=== PATIENT | female | born 1935 | race Two or more races ===

== ENCOUNTER 2017-04-02 22:10 | Inpatient (IN) | payer MEDICARE, MEDICAID ==
[~2017-04-02] VITALS: Ht 154.9 cm; Wt 48.5 kg
--- NOTE | 2017-04-02 22:12 | NUR ---
TO BED 7 BIB PARAMEDICS C/O WORSENING SOB, RHONCHI HEARD BILATERALLY ON AUSCULTATION. PT STARTED ON CPAP BY EMS RESIDENTIAL DOOR INSTALLER. ER MD AT BEDSIDE TO EVAL PT WITH ORDERS RECEIVED. RT AT BEDSIDE. SL 20G TO R HAND RESIDENTIAL DOOR INSTALLER. PLACE PT ON CARDAIC MONITORING, CONTINUOUS POX.
--- NOTE | 2017-04-02 22:15 | NUR ---
RT PLACE PT ON BIPAP 15/5, RATE-16, FIO2-40%. WILL CONTINUE TO MONITOR PT CLOSELY. CALL LIGHT WIHTIN REACH.
--- NOTE | 2017-04-02 22:15 | NUR ---
STARTED SL 18G TO LAC, BLOOD DRAWN AND SENT TO LAB.
[2017-04-02] MEDS ORDERED: FUROSEMIDE 20 MG/2 ML VIAL IV ONE (22:30)
[2017-04-02] MEDS ORDERED: CEFTRIAXONE 1GM BAG (ER ONLY) 50 ML IV ONE (22:30)
--- NOTE | 2017-04-02 22:37 | NUR ---
RAPID INFLUENZA SWAB COLLECTED AND SENT TO LAB.
[2017-04-02 22:41] VITALS: BP 100/62
[2017-04-02] MEDS ORDERED: CEFTRIAXONE 1 G VIAL ONE (22:44)
[2017-04-02 22:57] LABS: BASOPHILS % (AUTO) 0.1 % (0.0-2.0); EOSINOPHILS # (AUTO) 0.1 /CMM (0.0-0.7); EOSINOPHILS % (AUTO) 0.6 % (0.0-6.0); HEMATOCRIT 37 % (33-45); HEMOGLOBIN 12.6 g/dL (11.5-14.8); LYMPHOCYTES # (AUTO) 0.5 /CMM (0.8-4.8); LYMPHOCYTES % (AUTO) 4.6 % (20.0-44.0); MEAN CORPUSCULAR HEMOGLOBIN 28 PG (26.0-33.0); MEAN CORPUSCULAR HGB CONC 34 g/dl (31.0-36.0); MEAN CORPUSCULAR VOLUME 83 fL (82-100); MONOCYTES # (AUTO) 0.5 /CMM (0.1-1.30); MONOCYTES % (AUTO) 4.4 % (2.0-12.0); NEUTROPHILS # (AUTO) 10.3 /CMM (1.8-8.9); NEUTROPHILS % (AUTO) 90.3 % (43.0-81.0); PLATELET COUNT (AUTO) 459 /CMM (150-450); RDW COEFFICIENT OF VARIATION 12.9 (11.5-15.0); RED BLOOD CELL COUNT(AUTO) 4.48 MIL/uL (4.0-5.2); WHITE BLOOD COUNT (AUTO) 11.4 K/uL (4.3-11.0)
--- NOTE | 2017-04-02 22:57 | NUR ---
PT REC'D ON CPAP MASK 15L. RESP DISTRESS NOTED. PT PLACED ON BIPAP PER DR GONZÁLES REQUEST. BIPAP PLUGGED INTO RED OUTLET, ALARMS ARE SET AND AUDIBLE. AMBU BAG BEDSIDE. WILL CONTINUE MONITOR. Addendum: 04/02/17 at 2300 by MIRELLA MILLER RT Amended: Links added.
[2017-04-02] MEDS ORDERED: IV NS 0.9% 1,000 ML BAG IV ONE (23:00)
[2017-04-02 23:08] LABS: INR 0.9 (0.87-1.13); PROTHROMBIN TIME 9.4 SECS (9.5-12.7)
[2017-04-02 23:15] LABS: TROPONIN I < 0.017 ng/mL (0.00-0.056)
[2017-04-02 23:17] LABS: ALANINE AMINOTRANSFERASE 29 U/L (12-78); ALBUMIN 2.5 g/dL (3.4-5.0); ALKALINE PHOSPHATASE 122 U/L (46-116); ASPARTATE AMINOTRANSFERASE 22 U/L (15-37); B-TYPE NATRIURETIC PEPTIDE 2838 PG/ML (0-125); BILIRUBIN,DIRECT 0.1 mg/dL (0.0-0.2); BILIRUBIN,TOTAL 0.5 mg/dL (0.2-1.0); CALCIUM, SERUM 8.3 mg/dL (8.5-10.1); CARBON DIOXIDE 25 mmol/L (21-32); CREATININE 0.9 mg/dL (0.6-1.3); GLUCOSE 123 mg/dL (74-106); POTASSIUM 5.6 mmol/L (3.5-5.1); UREA NITROGEN, BLOOD 39 mg/dL (7-18)
[2017-04-02 23:19] LABS: CHLORIDE 72 mmol/L (98-107); SODIUM SERUM 104 mmol/L (136-145)
[2017-04-02 23:21] VITALS: BP 122/62
[2017-04-02] MEDS ORDERED: IOHEXOL-350 100 ML VIAL IV ONE (23:22)
[2017-04-02] MEDS ORDERED: IV NS 0.9% 250 ML IV ONE (23:23)
[2017-04-02 23:26] LABS: ABG OXYGEN SATURATION 98.9 % (92.0-98.5); ABG PCO2 29.6 mmHg (35.0-45.0); ABG PH 7.399 (7.350-7.450); ABG PO2 259.5 mmHg (75.0-100.0); AaDO2 135.7 mmHg; COHb 0.1 % (0.5-1.5); MetHb 0.3 % (0.0-1.5); O2Hb 98.5 % (94.0-97.0); SITE, ABG Right Radial; VENT MODE, BG BIPAP 15/5 60% BR 16
[2017-04-02 23:29] LABS: APPEARANCE,URINE CLEAR (CLEAR); BILIRUBIN,URINE NEGATIVE (NEGATIVE); BLOOD, URINE NEGATIVE Ery/uL (NEGATIVE); COLOR,URINE YELLOW (YELLOW); KETONES,URINE NEGATIVE (NEGATIVE); LEUKOCYTE ESTERASE ,URINE NEGATIVE (NEGATIVE); NITRITE, URINE NEGATIVE (NEGATIVE); PROTEIN,URINE NEGATIVE (NEGATIVE); UGLUCOSE NEGATIVE (NEGATIVE); UROBILINOGEN,URINE 0.2 EU/dL (0.2)
[2017-04-02] MEDS ORDERED: IV Sodium Chloride 3% 500 ML 500 ML IV PRN (23:30)
[2017-04-03] VITALS (61 sets, daily range): BP systolic 59–132; BP diastolic 33–74
[2017-04-03] MEDS ORDERED: IV Sodium Chloride 3% 500 ML 500 ML IV ONE (00:02)
--- NOTE | 2017-04-03 01:07 | NUR ---
PT SLEEPING IN BED, BREATHING EVEN/UNLABORED, NO C/O PAIN o2 SAT 99% 4L VIA CANNULA, UPDATED ON PLAN TO ADMIT.
[2017-04-03] MEDS ORDERED: LEVOFLOXACIN 500 MG /D5W 100ML 100 ML IV ONE (01:12)
--- NOTE | 2017-04-03 01:27 | NUR ---
PT SLEEPING, AROUSBLE TO VOICE, BREATHING UNLABORED, NO C/O PAIN AT THIS TIME, NAD NOTED, WAITING ON ROOM FOR ADMISSION
[2017-04-03] MEDS ORDERED: LEVOFLOXACIN 500 MG /D5W 100ML 500 MG/100 ML PIGGYBACK IV ONE (01:30)
[2017-04-03] MEDS ORDERED: IV NS 0.9% 1,000 ML BAG IV ONE (01:30)
--- NOTE | 2017-04-03 01:50 | NUR ---
REPORT TO WILLI MATA, ALL QUESTIONS ANSWERED
--- NOTE | 2017-04-03 02:05 | NUR ---
ICU/RN- ADMITTED THIS 81 Y/O FEMALE FROM ER PER ACLS PROTOCOL. ROUTINE ICU ADMISSION CARE INITIATED.NURSING FOCUS: ELECTROLYTE IMBALANCE R/T DIAGNOSIS OF HYPONATREMIA. PT. IS LETHARGIC, AROUSABLE, NOB- GAMBIAN SPEAKING, NAURUAN SPEAKING ONLY. W/ GENERALIZED BODY WEAKNESS.BREATHING COMES EASY W/ O2 SUPPORT OF 2L/NC, SATS.-97%. EKG SR W/ HR-67/MIN. BP-103/58,PT. NOTED TO HAVE REDNESS ON SACRAL AREA AND KEHINDE .HEELS, BLANCHABLE. NOTED EXCORIATION OF PERIANAL AREA. WASHED W/ SOAP AND WATER. PAT DRY W/ TOWEL. HYPOTHERMIC. TEMPT.-93.3/F, PT. COVERED W/ SEVERAL BLANKETS AND KEPT. WARM AND DRY. NO S/S OF PAIN AND DISTRESS. PT. IS A FULL CODE.
--- NOTE | 2017-04-03 02:40 | NUR ---
ICU/RNWil BOLDEN ACNP HERE TO SEE PT. W/ ORDERS TO INCREASE 3% NS AT 25 ML/HR. WILL CONTINUE TO MONITOR NA LEVELS PER PROTOCOL.
[2017-04-03] MEDS ORDERED: MAGNESIUM HYDROXIDE 30 ML UDC PO PRN (03:00)
[2017-04-03] MEDS ORDERED: HYDROCODONE/APAP 5/325MG 1 EACH TABLET PO PRN (03:00)
[2017-04-03] MEDS ORDERED: ACETAMINOPHEN 325 MG TABLET PO PRN (03:00)
[2017-04-03] MEDS ORDERED: ZOLPIDEM TARTRATE 5 MG TABLET PO PRN (03:00)
[2017-04-03] MEDS: ACETYLCYSTEINE 10% SOLN 400 MG/4 ML VIAL NEB SCH ×4 (03:00→23:30)
[2017-04-03] MEDS ORDERED: ALBUTEROL FS 2.5 MG/0.5 ML VIAL.NEB NEB PRN (03:00)
[2017-04-03] MEDS ORDERED: ONDANSETRON HCL/PF 4 MG/2 ML VIAL IVP PRN (03:00)
[2017-04-03] MEDS ORDERED: IPRATROPIUM NEB FS 0.5 MG/2.5 ML AMPUL.NEB NEB PRN (03:00)
[2017-04-03 03:19] LABS: CALCIUM, SERUM 7.2 mg/dL (8.5-10.1); CARBON DIOXIDE 19 mmol/L (21-32); CHLORIDE 81 mmol/L (98-107); CREATININE 0.9 mg/dL (0.6-1.3); GLUCOSE 109 mg/dL (74-106); POTASSIUM 4.7 mmol/L (3.5-5.1); UREA NITROGEN, BLOOD 36 mg/dL (7-18)
[2017-04-03 03:24] LABS: SODIUM SERUM 111 mmol/L (136-145)
--- NOTE | 2017-04-03 03:24 | NUR ---
ICU/RN-RESULTS OF NA IN 111, RELAYED TO [facility] ACNP , NO ORDERS.
--- NOTE | 2017-04-03 03:46 | NUR ---
ICU/RN- TEMPT. RECHECKED 97/F, CONTINUE TO DO WARMING MEASURES PER PROTOCOL.
[2017-04-03 05:57] LABS: CALCIUM, SERUM 7.3 mg/dL (8.5-10.1); CARBON DIOXIDE 19 mmol/L (21-32); CHLORIDE 83 mmol/L (98-107); CREATININE 0.8 mg/dL (0.6-1.3); GLUCOSE 95 mg/dL (74-106); POTASSIUM 4.5 mmol/L (3.5-5.1); UREA NITROGEN, BLOOD 34 mg/dL (7-18)
[2017-04-03 06:01] LABS: OSMOLALITY,URINE 268 mOS/kg (340-1090)
[2017-04-03 06:07] LABS: URINE SODIUM, RANDOM 50 mmol/l (40-220)
[2017-04-03 06:16] LABS: SODIUM SERUM 114 mmol/L (136-145)
--- NOTE | 2017-04-03 06:20 | NUR ---
ICU/RN- PT. HAVING A STRIDOR LIKE BREATHING, SATS.-98%, NOT IN ANY DISTRESS. RT LEROY NOTIFIED AND HERE TO SUCTION PT NT.
--- NOTE | 2017-04-03 06:30 | NUR ---
ICU/RN- PT. NT SUCTIONED BY RT , OBTAINED MODERATE AMOUNT OF THICK YELLOW SPUTUM. ALPESH. PROCEDURE. NO S/S OF DISTRESS.
--- NOTE | 2017-04-03 08:00 | NUR ---
ROLLER TURNER RECEIVED PT IN BED AWAKE ALERT FOLLOWS COMMANDS, PT HAS SHALLOW RESPIRATION, PELEG AT BEDSIDE, FERNÁNDEZ PRESENT IV ACCESS PATENT, PT TURNED AND REPOSITIONED IN BED, ALL PT NEEDS MEET, EVENTUALLY PT BECAME RESPIRATORY DISTRESS WITH SHALLOW RESPIRATION PT WAS PLACED ON NON REBREATHER, ABG PERFOMED ORDERED BIPAP PT PLACED ON BIPAP. REPORT GIVEN AT 1430 TO SIMONE MATA FOR CONTINUITY OF CARE.
[2017-04-03 11:08] LABS: CALCIUM, SERUM 7.2 mg/dL (8.5-10.1); CARBON DIOXIDE 21 mmol/L (21-32); CHLORIDE 86 mmol/L (98-107); CREATININE 0.8 mg/dL (0.6-1.3); GLUCOSE 111 mg/dL (74-106); POTASSIUM 4.2 mmol/L (3.5-5.1); UREA NITROGEN, BLOOD 35 mg/dL (7-18)
[2017-04-03 11:51] LABS: SODIUM SERUM 117 mmol/L (136-145)
[2017-04-03 13:57] LABS: ABG BASE EXCESS -5.1 mmol/L; ABG OXYGEN SATURATION 94.7 % (92.0-98.5); ABG PCO2 50.5 mmHg (35.0-45.0); ABG PH 7.259 (7.350-7.450); ABG PO2 87.7 mmHg (75.0-100.0); AaDO2 52.4 mmHg; COHb 0.3 % (0.5-1.5); MetHb 0.5 % (0.0-1.5); O2Hb 93.9 % (94.0-97.0); SITE, ABG Right Radial; VENT MODE, BG NASAL CANNULA
[2017-04-03 14:29] LABS: CALCIUM, SERUM 7.2 mg/dL (8.5-10.1); CARBON DIOXIDE 23 mmol/L (21-32); CHLORIDE 89 mmol/L (98-107); CREATININE 0.8 mg/dL (0.6-1.3); GLUCOSE 136 mg/dL (74-106); POTASSIUM 4.3 mmol/L (3.5-5.1); UREA NITROGEN, BLOOD 33 mg/dL (7-18)
--- NOTE | 2017-04-03 14:30 | NUR ---
AFTER SCHOOL PROGRAM DIRECTOR INITIAL NOTE RECEIVED PT FROM ALEXANDRA MATA. PT IN BED, ON BIPAP 17/09 RATE 20 FIO2 50%. PT IS HAVING LABORED BREATHING. RT AWARE. NEXT ABG DUE AT 1530. PT IS AWAKE AND ABLE TO NOD HEAD TO QUESTIONS. LUNG SOUNDS RHONCHI. BOWEL SOUNDS PRESENT. FERNÁNDEZ INTACT AND DRAINING. IV PATENT AND INTACT. REPOSITIONED FOR COMFORT. BED IN LOW LOCKED POSITION. WILL CONTINUE TO CLOSELY MONITOR. Addendum: 04/03/17 at 1456 by SY LEMONS RN NOTE BY LUISITO OSPINA RN
--- NOTE | 2017-04-03 14:30 | NUR ---
CONSULTING UTILITY FORESTER INITIAL NOTE RECEIVED PT FROM ALEXANDRA RN. PT IN BED, ON BIPAP 18/6 RATE 20 FIO2 50%. PT IS HAVING LABORED BREATHING. RT AWARE. NEXT ABG DUE AT 1530. PT IS AWAKE AND ABLE TO NOD HEAD TO QUESTIONS. LUNG SOUNDS RHONCHI. BOWEL SOUNDS PRESENT. FERNÁNDEZ INTACT AND DRAINING. IV PATENT AND INTACT. REPOSITIONED FOR COMFORT. BED IN LOW LOCKED POSITION. WILL CONTINUE TO CLOSELY MONITOR.
[2017-04-03 14:55] LABS: SODIUM SERUM 119 mmol/L (136-145)
[2017-04-03 15:36] LABS: ABG BASE EXCESS -5.8 mmol/L; ABG OXYGEN SATURATION 93.4 % (92.0-98.5); ABG PCO2 48.6 mmHg (35.0-45.0); ABG PH 7.259 (7.350-7.450); ABG PO2 79.4 mmHg (75.0-100.0); AaDO2 222.4 mmHg; COHb 0.3 % (0.5-1.5); MetHb 0.6 % (0.0-1.5); O2Hb 92.6 % (94.0-97.0); SITE, ABG Right Radial; VENT MODE, BG ST 18/6 20 50%
[2017-04-03] MEDS: IV Sodium Chloride 3% 500 ML 500 ML IV PRN (15:49)
--- NOTE | 2017-04-03 16:40 | NUR ---
FULL STACK JAVA DEVELOPER DR HASKINS CALLED TO ASSESS PT. PT IS LESS RESPONSIVE. OPENS EYES TO PAINFUL STIMULI. DR HASKINS ORDERED TO INTUBATE. WILL NOTIFY TEAM.
--- NOTE | 2017-04-03 16:52 | NUR ---
AIRPLANE REFUELER PT INTUBATED BY DR DE. 23 CM 7.5. VENT SETTINGS AC 16 TV 400 FIO2 100% PEEP 5. MENDOZA RT AT BEDSIDE. WILL CONTINUE TO MONITOR.
[2017-04-03] MEDS ORDERED: IV NS 0.9% 500 ML IV ONE (17:00)
[2017-04-03] MEDS ORDERED: PROPOFOL 100 ML IV PRN (17:00)
[2017-04-03] MEDS ORDERED: NOREPINEPHRINE 8 MG in IV D5W 500 ML IV PRN (17:00)
--- NOTE | 2017-04-03 17:22 | NUR ---
RT NOTE PT INTUBATED PER MD ORDER. 7.5 ETT 23 CM AT LIP. SETTINGS PRESCRIBED AC 16 400 100% +0. ALARM SET PER PROTOCOL AND AUDIBLE. VENT PLUGGED IN TO RED OUTLET. AMBU BAG AT BED SIDE. NO DISTRESS NOTED WILL CONTINUE TO MONITOR. Addendum: 04/03/17 at 1724 by MENDOZA ROSARIO RT Amended: Links added.
[2017-04-03 18:04] LABS: ABG BASE EXCESS -6.5 mmol/L; ABG OXYGEN SATURATION 98.5 % (92.0-98.5); ABG PCO2 30.5 mmHg (35.0-45.0); ABG PO2 230.8 mmHg (75.0-100.0); AaDO2 451.7 mmHg; COHb 0.2 % (0.5-1.5); MetHb 0.5 % (0.0-1.5); O2Hb 97.8 % (94.0-97.0); PEEP,BG 0 cm H2O; SITE, ABG Right Radial; VENT MODE, BG AC 16 400; VT, ABG 400 mL
--- NOTE | 2017-04-03 18:13 | NUR ---
ETT PULLED BACK BY 3CM AND SECURED AT 20CM LIPLINE. CLEAR BILATERAL BREATH SOUNDS NOTED. MODERATE AMOUNTS OF THICK BLOOD TINGED SECRETIONS NOTED UPON ETT SX'ING. RN MADE AWARE.
[2017-04-03] MEDS: PROPOFOL 10MG/ML 50ML 50 ML IV PRN (18:23)
[2017-04-03] MEDS ORDERED: ETOMIDATE 2 MG/ML VIAL IV ONE (19:12)
[2017-04-03] MEDS ORDERED: SUCCINYLCHOLINE CHLORIDE 20 MG/ML VIAL IV ONE (19:12)
[2017-04-03] MEDS: CEFTRIAXONE 1 G in IV D5W 50 ML IV SCH (21:45)
--- NOTE | 2017-04-03 22:00 | NUR ---
ELEVATOR OPERATOR SERVICE RIGHT UPPER ARM MIDLINE PLACED. PT TOLERATED WELL. WILL CONTINUE TO MONITOR.
--- NOTE | 2017-04-03 22:30 | NUR ---
ROCK CRUSHING MACHINE OPERATOR PT CLEANED AND REPOSITIONED. PT IS INTUBATED TOLERATING CURRENT SETTINGS. SECRETIONS ARE PINK TINGED AND FROTHY. WILL CONTINUE TO MONITOR.
[2017-04-04] VITALS (74 sets, daily range): BP systolic 83–142; BP diastolic 46–75
[2017-04-04] MEDS: PROPOFOL 10MG/ML 50ML 50 ML IV PRN ×4 (00:07→17:22)
[2017-04-04 05:17] LABS: BASOPHILS % (AUTO) 0.1 % (0.0-2.0); EOSINOPHILS # (AUTO) 0.1 /CMM (0.0-0.7); EOSINOPHILS % (AUTO) 0.6 % (0.0-6.0); HEMATOCRIT 30 % (33-45); HEMOGLOBIN 10.5 g/dL (11.5-14.8); LYMPHOCYTES # (AUTO) 0.4 /CMM (0.8-4.8); LYMPHOCYTES % (AUTO) 3.4 % (20.0-44.0); MEAN CORPUSCULAR HEMOGLOBIN 29 PG (26.0-33.0); MEAN CORPUSCULAR HGB CONC 35 g/dl (31.0-36.0); MEAN CORPUSCULAR VOLUME 84 fL (82-100); MONOCYTES # (AUTO) 0.4 /CMM (0.1-1.30); MONOCYTES % (AUTO) 3.1 % (2.0-12.0); NEUTROPHILS # (AUTO) 11.9 /CMM (1.8-8.9); NEUTROPHILS % (AUTO) 92.8 % (43.0-81.0); PLATELET COUNT (AUTO) 309 /CMM (150-450); RED BLOOD CELL COUNT(AUTO) 3.62 MIL/uL (4.0-5.2); WHITE BLOOD COUNT (AUTO) 12.8 K/uL (4.3-11.0)
[2017-04-04 05:21] LABS: CALCIUM, SERUM 7.2 mg/dL (8.5-10.1); CARBON DIOXIDE 18 mmol/L (21-32); CHLORIDE 95 mmol/L (98-107); CREATININE 0.8 mg/dL (0.6-1.3); GLUCOSE 80 mg/dL (74-106); MAGNESIUM 1.8 mg/dL (1.8-2.4); SODIUM SERUM 124 mmol/L (136-145); UREA NITROGEN, BLOOD 31 mg/dL (7-18)
[2017-04-04 05:31] LABS: CHOLESTEROL 107 mg/dL (<200); HDL CHOLESTEROL 24 mg/dL (40-60); LDL 53 mg/dL (0-99); TRIGLYCERIDES 197 mg/dL (30-150)
--- NOTE | 2017-04-04 05:38 | NUR ---
RECEIVED ON [facility] VENT WITH NOTED SETTING. ETT PROPERLY SECURED. VENT PLUGGED INTO RED OUTLET. ALARMS SET AND AUDIBLE. AMBU BAG AT HOB. PRN SX GIVEN NEEDED. NO ADVERSE REACTIONS/ SOB/ DISTRESS NOTED ALL SHIFT. Addendum: 04/04/17 at 0539 by LIVE FAGAN RT Amended: Links added.
[2017-04-04 06:23] LABS: INR 0.97 (0.87-1.13); PROTHROMBIN TIME 10.1 SECS (9.5-12.7)
[2017-04-04 06:25] LABS: D-DIMER 10.72 mg/L(FEU (0.17-0.50)
--- NOTE | 2017-04-04 07:00 | NUR ---
RN INITIAL NOTE RECEIVED PT SEDATED, INTUBATED, ETT 7.08/22 LIPLINE AC 16 TV 500 FIO2 50% PEEP 0, SATING WELL, NO S/S OF RESP.DISTRESS OR SOB NOTED AT THIS TIME, PT IS ON BEDSIDE MONITOR SHOWING SR @ 70'S, SBP >100, PT HAS GTUBE, CLAMPED AT THIS TIME, PT HAS F/C DRAINING YELLOW URINE TO GRAVITY, PT HAS R HAND #20G, LAC #18G, JUSTIN MIDLINE, RUNNING DIPRIVAN @10MCG/MIN, 3%NS @25ML/HR, NO S/S OF INFECTION/ INFILTRATION NOTED AT THIS TIME, PT IS NOTED WITH BILATERAL WRIST RESTRAINTS, SKIN CHECK DONE, RELEASED AND PASSIVE ROM PERFORMED, PT IS NOTED WITH SKIN ISSUES, ALL SAFETY MEASURES IN PLACE AT ALL TIMES, CALL LIGHT WITHIN EASY REACH, WILL MONITOR PT CLOSELY FOR CHANGES
[2017-04-04] MEDS: ACETYLCYSTEINE 10% SOLN 400 MG/4 ML VIAL NEB SCH ×3 (07:35→23:30)
--- NOTE | 2017-04-04 08:00 | NUR ---
SEDATION VACATION- DIPRIVAN TITRATED PER PROTOCOL, PT ABLE TO FOLLOW SIMPLE COMMANDS, ABLE TO MOVE EXTREMITIES, BILATERAL WRIST RESTRAINTS REMAIN IN PLACE FOR PT SAFETY, ORAL CARE PROVIDED, PT SUCTIONED, DIPRIVAN WILL BE RESTARTED FOR PT SAFETY IF NEEDED NIECE AT BEDSIDE, ALL QUESTIONS AND CONCERNS ANSWERED.
--- NOTE | 2017-04-04 08:35 | NUR ---
ICU NOTE MADE ROUNDS, AWARE OF LABS AND RESULTS, ORDERED LEFT SIDE THORACENTESIS AND ABG
--- NOTE | 2017-04-04 08:55 | NUR ---
ICU NOTE RECEIVED CONSENT FOR LEFT SIDE THORACENTESIS FROM JIMBO, CONSENT IN CHART
[2017-04-04 09:59] LABS: ABG BASE EXCESS -5.9 mmol/L; ABG OXYGEN SATURATION 97.3 % (92.0-98.5); ABG PCO2 24.3 mmHg (35.0-45.0); ABG PH 7.454 (7.350-7.450); ABG PO2 113.2 mmHg (75.0-100.0); COHb 0.2 % (0.5-1.5); MetHb 0.4 % (0.0-1.5); O2Hb 96.7 % (94.0-97.0); SITE, ABG Right Radial
--- NOTE | 2017-04-04 10:07 | NUR ---
ABG DONE ON AC 16, TX=[id number], FI02=50%. RESULTS REPORTED TO . DECREASED RR TO 12 PER MD ORDER. NURSE NOTIFIED.
--- NOTE | 2017-04-04 11:01 | NUR ---
ICU NOTE- DIPRIVAN RESTARTED FOR PT SAFETY, PT BITING OF ETT, RESTLESS, RR INCREASED. WILL MONITOR CLOSELY
--- NOTE | 2017-04-04 11:37 | NUR ---
WOUND CARE CONSULT PATIENT SEEN AND SKIN INTEGRITY ASSESSMENT DONE. SEE HOME INSURANCE AGENT ASSESSMENT IN PCS FOR TODAY. PATIENT CURRENTLY INTUBATED, ANGELITA AT 11, RECOMMEND 1ST STEP LOW AIRLOSS MATTRESS, TURNING SCHED Q 2 HOURS PATIENT CONDITION PERMITS, AND BILATERAL HEEL OFF LOADING AND FLOATING. Z GUARD ORDERED FOR SKIN/MOISTURE MANAGEMENT. ALL SKIN MANAGEMENT DISCUSSED WITH NURSING STAFF AT THE BEDSIDE. MD IN AGREEMENT WITH PLAN OF CARE. Addendum: 04/04/17 at 1139 by LUIS ARMANDO WILLAMS WNDNU Amended: Links added.
[2017-04-04] MEDS ORDERED: TRIA1CAP6 GT (11:56)
[2017-04-04] MEDS ORDERED: AMYL1CAP54 GT (11:56)
[2017-04-04] MEDS ORDERED: CLON1PAT TD (11:56)
[2017-04-04] MEDS ORDERED: NEUTRA PHOS GT (11:56)
[2017-04-04] MEDS ORDERED: DICL100G16 TP (11:56)
[2017-04-04] MEDS ORDERED: LIDO30AD10 TP (11:56)
[2017-04-04] MEDS ORDERED: LISI-603 GT (11:56)
[2017-04-04] MEDS ORDERED: ASPI-1169 PO (11:56)
[2017-04-04] MEDS ORDERED: ENOX30DI SQ (11:56)
[2017-04-04] MEDS ORDERED: LANS30CA54 GT (11:56)
[2017-04-04] MEDS ORDERED: RISP0.253 GT (11:56)
[2017-04-04] MEDS ORDERED: ONDA4TAB5 GT (11:56)
[2017-04-04] MEDS ORDERED: ACET-868 GT (11:56)
[2017-04-04] MEDS ORDERED: CARV12.5 GT (11:56)
[2017-04-04] MEDS ORDERED: FLUT1DIS3 IH (11:56)
[2017-04-04] MEDS ORDERED: AMLO10TA4 GT (11:56)
[2017-04-04] MEDS ORDERED: NITR1PAT67 TD (11:56)
[2017-04-04] MEDS ORDERED: FLUC100T GT (11:56)
--- NOTE | 2017-04-04 13:15 | NUR ---
ICU NOTE- [facility] MATTRESS PLACED, COMPLETE BEDBATH GIVEN, ORAL CARE PROVIDED.
--- NOTE | 2017-04-04 14:00 | NUR ---
ICU NOTE- INFORMED DR. DE REGARDING MEDICATION RECON AND TUBE FEEDING. NO NEW ORDERS AT THIS TIME
[2017-04-04] MEDS: IV Sodium Chloride 3% 500 ML 500 ML IV PRN (14:17)
[2017-04-04 15:24] LABS: CALCIUM, SERUM 6.8 mg/dL (8.5-10.1); CARBON DIOXIDE 17 mmol/L (21-32); CHLORIDE 100 mmol/L (98-107); CREATININE 0.9 mg/dL (0.6-1.3); GLUCOSE 98 mg/dL (74-106); POTASSIUM 3.4 mmol/L (3.5-5.1); SODIUM SERUM 130 mmol/L (136-145); UREA NITROGEN, BLOOD 26 mg/dL (7-18)
--- NOTE | 2017-04-04 15:52 | NUR ---
ICU NOTE- MEDICATION RECON DONE, ORDER FOR FIBERSOURCE @30ML/HR, INCREASE 10ML Q8H, GOAL RATE @50ML/HR
[2017-04-04] MEDS ORDERED: LIDOCAINE 5% (PATCH) 1 EA PATCH TP PRN (16:00)
[2017-04-04] MEDS ORDERED: ONDANSETRON HCL 4 MG/5 ML SOLUTION GT PRN (17:00)
--- NOTE | 2017-04-04 17:14 | NUR ---
RT NOTE: PATIENT RECEIVED ORALLY INTUBATED WITH 7.5 ETT SECURED AT 20 CM INNER LIP LINE ON PB 840 VENT. ETT WAS MOVED FROM LEFT TO RIGHT VIA ANCHOR FAST THROUGHOUT SHIFT. VENT ALARMS VERIFIED AND AUDIBLE. SUCTIONED AND LAVAGED THICK CLEAR/BLOOD TINGED SECRETIONS. VENT PLUGGED INTO RED OUTLET. AMBU BAG AT [facility].
[2017-04-04] MEDS: FIBERSOURCE HN 1,000 ML BOTTLE GT PRN (17:22)
[2017-04-04] MEDS: Z GUARD REMEDY 2 OZ OINT TP PRN (17:22)
[2017-04-04] MEDS: LISINOPRIL (20MG) 20 MG TABLET GT SCH (17:23)
[2017-04-04] MEDS: CARVEDILOL 12.5 MG TABLET GT SCH (17:23)
[2017-04-04] MEDS: LIPASE/PROTEASE/AMYLASE 1 EACH CAPSULE.DR PO SCH (18:00)
--- NOTE | 2017-04-04 20:00 | NUR ---
Received patient sedated on Diprivan drip at 10 mcg/kg/min and NS 3% both infusing to ES Midline. Site intact.Patient intubated to vent on AC mode.No respiratory distress noted.Bilateral crackles on Auscultation.SR.Normotensive.GT feeding in progress.FC to gravity with clear urine.Patient turned and repositioned offloading pressure points.Bilateral soft wrist restraints on for patient safety.Call light at bedside within easy reach.
[2017-04-04] MEDS ORDERED: IV NS 0.9% 250 ML IV ONE (20:30)
[2017-04-04] MEDS: CEFTRIAXONE 1 G in IV D5W 50 ML IV SCH (21:00)
[2017-04-04] MEDS ORDERED: LEVOFLOXACIN 750 MG /D5W 150ML 750 MG in PREMIX 1 EA IV SCH (22:00)
[2017-04-05] VITALS (34 sets, daily range): BP systolic 91–141; BP diastolic 39–63
--- NOTE | 2017-04-05 01:00 | NUR ---
Patient tolerating gt feeding.Residual 5 ml/.Increased rate to 40 ml/hr.
--- NOTE | 2017-04-05 02:00 | NUR ---
Patient resting.VS stable.Bed bath rendered.Oral care done.GT feeding well tolerated.No acute distress noted. Due medications administered.IV's infusing well.Turned and repositioned.Safety measures maintained.Call light at bedside.All needs met.No BM noted.
[2017-04-05] MEDS: PROPOFOL 10MG/ML 50ML 50 ML IV PRN ×2 (05:20→15:59)
[2017-04-05 05:26] LABS: BASOPHILS % (AUTO) 0.1 % (0.0-2.0); EOSINOPHILS # (AUTO) 0.1 /CMM (0.0-0.7); HEMATOCRIT 29 % (33-45); HEMOGLOBIN 9.7 g/dL (11.5-14.8); LYMPHOCYTES # (AUTO) 0.4 /CMM (0.8-4.8); LYMPHOCYTES % (AUTO) 3.6 % (20.0-44.0); MEAN CORPUSCULAR HEMOGLOBIN 28 PG (26.0-33.0); MEAN CORPUSCULAR HGB CONC 34 g/dl (31.0-36.0); MEAN CORPUSCULAR VOLUME 84 fL (82-100); MONOCYTES # (AUTO) 0.5 /CMM (0.1-1.30); MONOCYTES % (AUTO) 5.3 % (2.0-12.0); NEUTROPHILS # (AUTO) 9.1 /CMM (1.8-8.9); PLATELET COUNT (AUTO) 292 /CMM (150-450); RDW COEFFICIENT OF VARIATION 13.3 (11.5-15.0); RED BLOOD CELL COUNT(AUTO) 3.42 MIL/uL (4.0-5.2); WHITE BLOOD COUNT (AUTO) 10.1 K/uL (4.3-11.0)
--- NOTE | 2017-04-05 05:53 | NUR ---
RT PT RECEIVED INTUBATE ON [facility] VENT WITH NOTED SETTING. VENT PLUGGED IN TO RED OUTLET. ALARMS SET AND AUDIBLE. AMBU BAG AT HOB. NO SOB OR RESP DISTRESS NOTED ON SHIFT. SX SMALL AMOUNT OF THICK YELLOW SX PRN. Addendum: 04/05/17 at 0559 by IMELDA JONES RT Amended: Links added.
--- NOTE | 2017-04-05 07:12 | NUR ---
Patient status unchanged.Report given to incoming RN for continuity of care.
[2017-04-05] MEDS: ACETYLCYSTEINE 10% SOLN 400 MG/4 ML VIAL NEB SCH ×2 (07:32→15:30)
[2017-04-05] MEDS: FLUTICASONE/VILANTEROL 1 EACH BLST.W.DEV IH SCH (08:20)
[2017-04-05] MEDS: LISINOPRIL (20MG) 20 MG TABLET GT SCH ×2 (08:28→16:00)
[2017-04-05] MEDS: TRIAMTERENE/HYDROCHLOROTHIAZID (37.5/25MG) 1 UDCAP GT SCH (08:28)
[2017-04-05] MEDS: FLUCONAZOLE (100 MG) 100 MG TABLET GT SCH (08:28)
[2017-04-05] MEDS: CARVEDILOL 12.5 MG TABLET GT SCH ×2 (08:28→16:00)
[2017-04-05] MEDS: risperiDONE 0.25 MG TABLET PO SCH (08:29)
[2017-04-05] MEDS: LIPASE/PROTEASE/AMYLASE 1 EACH CAPSULE.DR PO SCH ×3 (08:29→17:00)
[2017-04-05] MEDS: AMLODIPINE BESYLATE 10 MG TABLET GT SCH (08:29)
[2017-04-05] MEDS: PANTOPRAZOLE 40 MG TABLET.DR PO SCH (08:29)
[2017-04-05] MEDS: ASPIRIN 81 MG TAB.CHEW PO SCH (08:29)
[2017-04-05] MEDS: ENOXAPARIN SODIUM 30 MG/0.3 ML DISP.SYRIN SQ SCH (08:29)
[2017-04-05] MEDS: NEUTRA PHOS 1 POWD.PACKET GT SCH ×3 (08:29→16:00)
[2017-04-05] MEDS ORDERED: DICLOFENAC SODIUM 1 GM TP PRN (08:30)
[2017-04-05] MEDS ORDERED: NITROGLYCERIN 0.6 MG/HR PATCH.TD24 TD SCH ×3 (09:00→14:50)
[2017-04-05 09:20] LABS: ABG BASE EXCESS -6.4 mmol/L; ABG OXYGEN SATURATION 97.6 % (92.0-98.5); ABG PH 7.406 (7.350-7.450); ABG PO2 135.3 mmHg (75.0-100.0); AaDO2 153.7 mmHg; COHb 0.1 % (0.5-1.5); MetHb 0.5 % (0.0-1.5); PEEP,BG 0 cm H2O; SITE, ABG Right Radial; VENT MODE, BG AC 12 400 45%; VT, ABG 400 mL
--- NOTE | 2017-04-05 09:30 | NUR ---
ICU/RN - Notes Diprivan gtt titrated down for sedation vacation. Pt alert and able to follows commands. Pt placed back on diprivan @ 10mcg/kg/min to ensure comfort as pt is intubated, as there are no plans of ventilator weaning at this time. Pt biting down on ETT tube while off sedation.
[2017-04-05 14:24] LABS: CALCIUM, SERUM 7.3 mg/dL (8.5-10.1); CARBON DIOXIDE 18 mmol/L (21-32); CHLORIDE 104 mmol/L (98-107); CREATININE 0.8 mg/dL (0.6-1.3); GLUCOSE 143 mg/dL (74-106); POTASSIUM 3.6 mmol/L (3.5-5.1); SODIUM SERUM 134 mmol/L (136-145); UREA NITROGEN, BLOOD 24 mg/dL (7-18)
--- NOTE | 2017-04-05 16:20 | NUR ---
RT RECEIVED PT ON AC MODE ON PB840, VENT PLUGGED INTO RED OUTLET, AMBUBAG AT BEDSIDE, ETT 7.5CM AND 20@THE LIP, BILATERAL B/S, ALARMS ON AND AUDIBLE. NO SOB NOTED CONTINUE TO MONITOR Addendum: 04/05/17 at 1623 by NANCY LUCAS RT Amended: Links added.
--- NOTE | 2017-04-05 20:00 | NUR ---
Patient sedated on Diprivan drip at 10 mcg/kg/min.Continued on same vent settings.VS stable. SR 60'S-70'S.No distress noted.GT feeding in progress with small residual.FC to gravity with clear yellow urine.Turned and repositioned to comfort.Continue monitoring.
[2017-04-05] MEDS: CEFTRIAXONE 1 G in IV D5W 50 ML IV SCH (21:03)
[2017-04-06] VITALS (26 sets, daily range): BP systolic 71–129; BP diastolic 32–75
[2017-04-06] MEDS: ACETYLCYSTEINE 10% SOLN 400 MG/4 ML VIAL NEB SCH ×3 (00:03→15:48)
[2017-04-06] MEDS: PROPOFOL 10MG/ML 50ML 50 ML IV PRN ×2 (01:25→09:04)
[2017-04-06 05:21] LABS: EOSINOPHILS # (AUTO) 0.2 /CMM (0.0-0.7); EOSINOPHILS % (AUTO) 1.4 % (0.0-6.0); HEMATOCRIT 26 % (33-45); HEMOGLOBIN 9.3 g/dL (11.5-14.8); LYMPHOCYTES # (AUTO) 0.5 /CMM (0.8-4.8); LYMPHOCYTES % (AUTO) 3.3 % (20.0-44.0); MEAN CORPUSCULAR HEMOGLOBIN 29 PG (26.0-33.0); MEAN CORPUSCULAR HGB CONC 36 g/dl (31.0-36.0); MEAN CORPUSCULAR VOLUME 82 fL (82-100); MONOCYTES # (AUTO) 0.5 /CMM (0.1-1.30); MONOCYTES % (AUTO) 3.5 % (2.0-12.0); NEUTROPHILS # (AUTO) 13.4 /CMM (1.8-8.9); NEUTROPHILS % (AUTO) 91.8 % (43.0-81.0); PLATELET COUNT (AUTO) 282 /CMM (150-450); RDW COEFFICIENT OF VARIATION 13.2 (11.5-15.0); RED BLOOD CELL COUNT(AUTO) 3.16 MIL/uL (4.0-5.2); WHITE BLOOD COUNT (AUTO) 14.6 K/uL (4.3-11.0)
--- NOTE | 2017-04-06 05:30 | NUR ---
RT PT RECEIVED INTUBATE w/ 7.5 @ 21CM LIP ON [facility] VENT WITH NOTED SETTING. ETT PATENT AND SECURE. VENT PLUGGED IN TO RED OUTLET. ALARMS SET AND AUDIBLE. AMBU BAG AT HOB. NO SOB OR RESP DISTRESS NOTED ON SHIFT. SX LARGE AMOUNT OF THICK YELLOW SECRETIONS. Addendum: 04/06/17 at 0519 by IMELDA JONES RT Amended: Links added.
[2017-04-06 05:42] LABS: CALCIUM, SERUM 7.6 mg/dL (8.5-10.1); CARBON DIOXIDE 21 mmol/L (21-32); CHLORIDE 106 mmol/L (98-107); CREATININE 0.8 mg/dL (0.6-1.3); GLUCOSE 193 mg/dL (74-106); POTASSIUM 3.9 mmol/L (3.5-5.1); SODIUM SERUM 137 mmol/L (136-145); UREA NITROGEN, BLOOD 26 mg/dL (7-18)
--- NOTE | 2017-04-06 06:45 | NUR ---
Patient resting.VS remains stable.All needs met.No significant changes noted.Plan to change vent settings to SIMV today.
--- NOTE | 2017-04-06 07:10 | NUR ---
RN INITIAL NOTES: REC'D PT ON BED, NOT IN ANY DISTRESS, OPENS EYES SPONTANEOUSLY. HAS ETT IN PLACE, LEVEL 20, ON PRESCRIBED VENT SETTINGS, SATING AT 100%. ON TELEMONITOR, SR. HAS PEG PATENT & INTACT, ON CONT TUBE FEEDING OF FIBERSOURCE X 50 CC/HR INFUSING WELL, NO RESIDUAL NOTED UPON CHECKING. HAS 3 IV LINE ACCESS - ES MIDLINE, R HAND G20, AND L AC G18, FLUSHED, PATENT & INTACT W/ NO S/SX OF INFECTION/INFILTRATION NOTED. HAS FC PATENT & INTACT DRAINING TO ADEQUATE URINE OUTPUT. PROVIDED COMFORT & SAFETY MEASURES. BED KEPT LOW & IN LOCKED POS. CALL LIGHT PLACED W/IN REACH. WILL CONTINUE TO MONITOR AND ATTEND PT NEEDS. Addendum: 04/06/17 at 1103 by FADI ARECHIGA RN ADDENDUM: ON ES MIDLINE, PT ON DIPRIVAN AT 10 MCG/KG/MIN INFUSING WELL. PT IS CALM.
[2017-04-06] MEDS: FLUCONAZOLE (100 MG) 100 MG TABLET GT SCH (08:24)
[2017-04-06] MEDS: LIPASE/PROTEASE/AMYLASE 1 EACH CAPSULE.DR PO SCH ×3 (08:24→17:09)
[2017-04-06] MEDS: ASPIRIN 81 MG TAB.CHEW PO SCH (08:24)
[2017-04-06] MEDS: NEUTRA PHOS 1 POWD.PACKET GT SCH ×2 (08:24→17:09)
[2017-04-06] MEDS: PANTOPRAZOLE 40 MG TABLET.DR PO SCH (08:25)
[2017-04-06] MEDS: TRIAMTERENE/HYDROCHLOROTHIAZID (37.5/25MG) 1 UDCAP GT SCH (08:25)
[2017-04-06] MEDS: risperiDONE 0.25 MG TABLET PO SCH (08:25)
[2017-04-06] MEDS: AMLODIPINE BESYLATE 10 MG TABLET GT SCH (08:26)
[2017-04-06] MEDS: CARVEDILOL 12.5 MG TABLET GT SCH ×2 (08:26→17:00)
[2017-04-06] MEDS: LISINOPRIL (20MG) 20 MG TABLET GT SCH ×2 (08:26→17:00)
[2017-04-06] MEDS: ENOXAPARIN SODIUM 30 MG/0.3 ML DISP.SYRIN SQ SCH (08:27)
[2017-04-06] MEDS: Z GUARD REMEDY 2 OZ OINT TP PRN (08:30)
[2017-04-06] MEDS: FLUTICASONE/VILANTEROL 1 EACH BLST.W.DEV IH SCH (08:31)
--- NOTE | 2017-04-06 09:00 | NUR ---
RN NOTES: PT SEEN & EXAMINED BY DR. HASKINS.
--- NOTE | 2017-04-06 10:45 | NUR ---
RN NOTES: DISCUSSED W/ PT'S NIECE PT'S CODE STATUS W/ CN. PER NIECE, SHE WANTED DNR AND IF PT WILL BE EXTUBATED SHE WANTED DNI. THIS WAS ALSO EXPLAINED TO HER W/ SWAZI APPLICATION SECURITY DEVELOPER. NO CONCERN IDENTIFIED AT THIS TIME.
--- NOTE | 2017-04-06 11:00 | NUR ---
LONG D/W PT'S NIECE IN YI AND WITH RN GUATEMALAN ANGIO TECHNOLOGIST TEA. NIECE STATES SHE IS ONLY NEXT OF KIN. NIECE STATES PT HAS METASTATIC CANCER AND CANNOT EAT OR WALK AND THAT PT DOES NOT WANT ANY TUBES OR LIFE SUPPORT. D/W DR DE. ORDERS FOR DNI/DNR
--- NOTE | 2017-04-06 11:26 | NUR ---
RN NOTES: PT SEEN & EXAMINED BY DR. DE.
--- NOTE | 2017-04-06 12:00 | NUR ---
RN NOTES: PT SEEN & EXAMINED BY DR. HASKINS. PER MD, PT WILL BE EXTUBATED. LEFT A VM TO PT'S NIECE ALMA TO INFORM HER REGARDING EXTUBATION. AWAITING CALL BACK.
[2017-04-06 12:10] LABS: ABG BASE EXCESS -4.3 mmol/L; ABG PCO2 24.7 mmHg (35.0-45.0); ABG PH 7.485 (7.350-7.450); ABG PO2 140.9 mmHg (75.0-100.0); AaDO2 151.9 mmHg; COHb 0.3 % (0.5-1.5); MetHb 0.5 % (0.0-1.5); O2Hb 97.2 % (94.0-97.0); PEEP,BG 5 cm H2O; SITE, ABG Right Radial; VENT MODE, BG SIMV 4 PS 15 +5
[2017-04-06] MEDS: FIBERSOURCE HN 1,000 ML BOTTLE GT PRN (12:34)
--- NOTE | 2017-04-06 13:58 | NUR ---
RN NOTES: SPOKE W/ ALMA (PT'S NIECE) AND INFORMED HER ABOUT PLANNED EXTUBATION, SHE SAID SHE'LL BE IN THE HOSPITAL AT 4PM. DR. HASKINS MADE AWARE.
[2017-04-06] MEDS ORDERED: MORPHINE SULFATE INJ 4 MG/ML DISP.SYRIN IV PRN (16:00)
[2017-04-06] MEDS ORDERED: DC PROPOFOL WHEN EXTUBATED XX PRN (16:00)
--- NOTE | 2017-04-06 16:00 | NUR ---
RN NOTES: DR. HASKINS SPOKE W/ PT'S NIECE ALMA AND OTHER FAMILY MEMBERS (WHO WERE ON SPEAKER PHONE) REGARDING EXTUBATION AND PLANNED GIVING COMFORT CARE TO THE PT. FAMILY AGREED TO EXTUBATING THE PT AND PROVIDING COMFORT CARE W/ MORPHINE MEDICATION. PER MD TO START PT ON MORPHINE 3MG IVP Q2H PRN. IF IVP NOT WORKING, START MORPHINE DRIP 5 MG/HR AND MAY GIVE UPTO 15 MG/HR. EXTUBATION WAS DONE C/O RT. PT WAS PLACED ON NC AT 5LPM, SATING AT 98% INITIALLY. NIECE AT BEDSIDE.
--- NOTE | 2017-04-06 16:15 | NUR ---
PT EXTUBATED PER MD ORDER. PLACED ON SUPPLEMENTAL OXYGEN.
[2017-04-06] MEDS ORDERED: MORPHINE SULFATE PF DRIP 250 MG in IV D5W 240 ML IV PRN (16:30)
--- NOTE | 2017-04-06 17:00 | NUR ---
PT IS CONGESTED AND LABORED WITH USE OF ACCESSORY MUSCLES. SPO2 DROPPING INTO THE MID 80"S. PT IS NON VERBAL. WE WILL START MORPHINE GTT IVP MORPHINE GIVEN 30 MIN AGO NOT EFFECTIVE. D/W DR HASKINS ALL ABOVE. NOW FOR FULL COMFORT CARE AND STOP ALL AGGRESSIVE RX PER DR HASKINS
[2017-04-06] MEDS ORDERED: MORPHINE SULFATE INJ 4 MG/ML DISP.SYRIN IV STA (17:51)
--- NOTE | 2017-04-06 17:52 | NUR ---
PT IS LABORED AND DESATURATING TO 82% AND THUS [facility] UNABLE TO DELIVER MORPHINE THEREFORE MORPHINE 4 MG IVP X 1 WILL BE GIVEN WHILE WAITING FOR GTT
[2017-04-06] MEDS ORDERED: MORPHINE SULFATE INJ 4 MG/ML DISP.SYRIN ONE (17:56)
--- NOTE | 2017-04-06 18:30 | NUR ---
DEEPA MARQUEZ CALLED IN AND WILLCOME HERE WITH OTHER FAMILY MEMBERS NIECE UNDERSTANDS THAT PT IS NOW ON COMFORT CARE SHE RAPIDLY DETERIORATED POST EXTUBATION. DEEPA MARQUEZ SPOKE WITH DR HASKINS EARLIER AND COMFORT CARE NOW INSTITUTED PER AND DEEPA'S PLAN. MORPHINE GTT AT 5 MG/HR
--- NOTE | 2017-04-06 19:00 | NUR ---
RN CLOSING NOTES: PT ON FULL COMFORT CARE. ON NC AT 5-6LPM, SATING AT 78%. ON TELEMONITOR, SR W/ HR 70BPM. BP 80/38. ES PICC LINE KEPT PATENT & INTACT W/ NO S/SX OF INFECTION/INFILTRATION, W/ MORPHINE DRIP AT 5 MG/HR INFUSING WELL. FC KEPT PATENT & INTACT. PT KEPT WELL RESTED. NEEDS ATTENDED. WILL ENDORSE TO PM RN FOR FRANKY.
--- NOTE | 2017-04-06 19:15 | NUR ---
NIECE AND FAMILY AT BEDSIDE AND SPOKEN WITH BY UKRAINIAN SPEAKING NURSE ED. FAMILY WILL STAY WITH PT SBP 80 AND SPO2 78% WITH MORPHINE GTT AT 5 MG/HR. RESPIRATIONS SHALLOW AND AGONAL RR 18/MIN
--- NOTE | 2017-04-06 20:55 | NUR ---
PT MOVED TO ROOM 200 AND UPON ENTRY TO ROOM. COMFORT MEASURE. DNI/DNR STATUS. FAMILY AT BEDSIDE. PT PRONOUNCED . NO SPONTANEOUS RESPIRATORY EFFORT. NO AUDIBLE HEART TONES. NO PULSES. NO OBTAINABLE BP. PUPILS FIXED. DR BLAIR AND NURSING SUP. NOTIFIED
--- NOTE | 2017-04-06 21:00 | NUR ---
MS RN NOTE: RECEIVED PATIENT FROM ICU, UPON ARRIVAL. NO HEART BEAT HEARD, NO PULSES FELT, NO RESPIRATIONS NOTED. UNABLE TO OBTAIN VITAL SIGNS. ICU VIV AT BEDSIDE AND VERIFIED THAT PATIENT HAS . FAMILY AT BEDSIDE. WILL CALL [facility] AND PROVIDE POST MORTUM CARE.
--- NOTE | 2017-04-06 21:20 | NUR ---
[facility] CALLED AND DECLINES. NIECE AT BEDSIDE MAKING MORTUARY ARRANGEMENTS
--- NOTE | 2017-04-06 21:30 | NUR ---
MS RN NOTE: [facility] CALLED BY ICU NURSE VIV, NOT A TON CYLINDER INSPECTOR'S CASE. OK TO REMOVE PICC LINE AND FERNÁNDEZ. FAMILY [facility] CALLED AND THEY WILL ENGINEER PROCESS BODY IN MORNING. PATIENT HAS NO BELONGINGS AND FAMILY SIGNED RECORD OF PAPERWORK.
--- NOTE | 2017-04-06 21:45 | NUR ---
MS RN NOTE: POST MORTUM CARE PROVIDED, PICC LINE TO RUE REMOVED, COVERED WITH GAUZE, PRESSURE APPLIED AND SECURED WITH TAPE. TIP OF PICC LINE INTACT AT 38 IN. FERNÁNDEZ CATHETER BALLOON DEFLATED AND REMOVED WITHOUT COMPLICATIONS. PATIENT WITH G-TUBE IN PLACE CLAMPED. LABEL APPLIED TO TOE AND OUTSIDE OF BAG. SECURITY CALLED TO HAVE PATIENT TRANSFERRED TO THE [facility].
[2017-04-06] MEDS ORDERED: KEY,NONCONTROL,TO KEEP IN PYXI 1 EA MC ONE (22:01)
--- NOTE | 2017-04-06 22:40 | NUR ---
MS RN NOTE: PATIENT TAKEN TO THE [facility] WITH AND CHIRAG GOOD. CHART GIVEN TO NURSING SEAT COVER CUTTER BRENDON.
== END 2017-04-06 20:55 | disposition expired | DRG 871 ==
LOC: ER 22:12 → ICU 04-03 01:27 → MEDSG2 04-06 20:42
PROVIDERS: ADMIT Nurse Practitioner Acute Care; ATTEND Nurse Practitioner Acute Care
PROC: 5A09357 Assistance with Respiratory Ventilation, Less than 24 Consecutive Hours, Continuous Positive Airway Pressure (ICD-10-PCS; 2017-04-02)
PROC: 5A1945Z Respiratory Ventilation, 24-96 Consecutive Hours (ICD-10-PCS; principal; 2017-04-03)
PROC: 0BH18EZ Insertion of Endotracheal Airway into Trachea, Via Natural or Artificial Opening Endoscopic (ICD-10-PCS; 2017-04-03)
DX: A41.9 Sepsis, unspecified organism (principal); J96.01 Acute respiratory failure with hypoxia; G93.41 Metabolic encephalopathy; J18.9 Pneumonia, unspecified organism; E44.0 Moderate protein-calorie malnutrition; E22.2 Syndrome of inappropriate secretion of antidiuretic hormone; Z51.5 Encounter for palliative care; C78.02 Secondary malignant neoplasm of left lung; C78.01 Secondary malignant neoplasm of right lung; N17.9 Acute kidney failure, unspecified; J90 Pleural effusion, not elsewhere classified; J98.19 Other pulmonary collapse; J44.0 Chronic obstructive pulmonary disease with (acute) lower respiratory infection; C18.9 Malignant neoplasm of colon, unspecified; J98.11 Atelectasis; E88.09 Other disorders of plasma-protein metabolism, not elsewhere classified; G62.9 Polyneuropathy, unspecified; E86.0 Dehydration; E78.5 Hyperlipidemia, unspecified; I12.9 Hypertensive chronic kidney disease with stage 1 through stage 4 chronic kidney disease, or unspecified chronic kidney disease; I25.10 Atherosclerotic heart disease of native coronary artery without angina pectoris; E03.9 Hypothyroidism, unspecified; E66.01 Morbid (severe) obesity due to excess calories; N18.9 Chronic kidney disease, unspecified; Z66 Do not resuscitate; Z93.1 Gastrostomy status; F09 Unspecified mental disorder due to known physiological condition; R13.10 Dysphagia, unspecified
CPT/HCPCS: 31720; 36415; 36600; 71045; 76604-TC; 80048-TC; 80061-TC; 80076-TC; 81000-TC; 82803-TC; 83605-TC; 83735-TC; 83880; 83935-TC; 84100-TC; 84300-TC; 84443-TC; 84484-TC; 85025-TC; 85396; 85730-TC; 86850-TC; 87040-TC; 87081-TC; 87086-TC; 87400; 93307-TC; 94003-TC; A4216; A4606; A6403; C1751; J0330; J0696; J1650; J1956; J2270; J2274; J3490; J7040; J7050; J7060; Q0162; Q9967; Z7610